=== PATIENT | male | born 1980 | race American Indian/Alaskan Native ===

== ENCOUNTER 2016-07-21 12:45 | Emergency (ER) | payer SELFPAY ==
[2016-07-21 12:52] VITALS: BP 129/86
[2016-07-21 13:24] LABS: Basophils % (Auto) 0.4 % (0.0-1.8); Hematocrit 38.6 % (35.5-45.6); Hemoglobin 12.9 gm/dl (11.8-15.2); Mean Corpuscular HGB Conc 33 % (32-34); Mean Corpuscular Hemoglobin 29 pg (28-32); Mean Corpuscular Volume 87 fl (84-94); Platelet Count 244 K/mm3 (140-440); Red Blood Count 4.42 M/mm3 (3.65-5.03); Red Cell Distribution Width 13.7 % (13.2-15.2); White Blood Count 7.2 K/mm3 (4.5-11.0)
[2016-07-21 13:29] LABS: Alanine Aminotransferase 35 units/L (7-56); Albumin 4.3 g/dL (3.9-5); Albumin/Globulin Ratio 1.7 %; Alkaline Phosphatase 50 units/L (35-129); Anion Gap 22 mmol/L; Blood Urea Nitrogen 13 mg/dL (9-20); Calcium 8.7 mg/dL (8.4-10.2); Carbon Dioxide 21 mmol/L (22-30); Glucose 145 mg/dL (75-100); Lipase 26 units/L (13-60); Potassium 3.7 mmol/L (3.6-5.0); Sodium 138 mmol/L (137-145); Total Protein 6.9 g/dL (6.3-8.2)
[2016-07-21 13:57] LABS: Bilirubin,Urine NEG (Negative); Blood,Urine NEG (Negative); Ketones,Urine 20 mg/dL (Negative); Leukocyte Esterase,Urine NEG (Negative); Mucus,Urine 1+ /HPF; Nitrite,Urine NEG (Negative); Urobilinogen,Urine < 2.0 mg/dL (<2.0)
--- NOTE | 2016-07-27 22:21 | ED Elopement Review ---
ED Pt Elopement review - Results review Lab results: Laboratory Tests 07/21/16 07/21/16 07/21/16 12:54 12:54 13:41 WBC 7.2 RBC 4.42 Hgb 12.9 Hct 38.6 MCV 87 MCH 29 MCHC 33 RDW 13.7 Plt Count 244 Lymph % (Auto) 13.1 L [place] % (Auto) 4.4 Eos % (Auto) 0.0 Baso % (Auto) 0.4 Lymph # 0.9 L [place] # 0.3 Eos # 0.0 Baso # 0.0 Seg Neutrophils % 82.1 H Seg Neutrophils # 5.9 Sodium 138 Potassium 3.7 Chloride 99.0 Carbon Dioxide 21 L Anion Gap 22 BUN 13 Creatinine 1.0 Estimated GFR > 60 BUN/Creatinine Ratio 13.00 Glucose 145 H Calcium 8.7 Total Bilirubin 2.00 H AST 36 ALT 35 Alkaline Phosphatase 50 Total Protein 6.9 Albumin 4.3 Albumin/Globulin Ratio 1.7 Lipase 26 Urine Color Yellow Urine Turbidity Clear Urine pH 5.0 Ur Specific Reading 1.026 Urine Protein 30 mg/dl Urine Glucose (UA) Neg Urine Ketones 20 Urine Blood Neg Urine Nitrite Neg Urine Bilirubin Neg Urine Urobilinogen < 2.0 Ur Leukocyte Esterase Neg Urine WBC (Auto) 2.0 Urine RBC (Auto) 1.0 U Epithel Cells (Auto) < 1.0 Urine Mucus 1+ - Call Back decision Pt Call Back Decision: No action required
== END 2016-07-21 19:20 | disposition left against medical advice (07) ==
LOC: ED 12:45
DX: R10.9 Unspecified abdominal pain (principal); M54.5 Low back pain; Z53.21 Procedure and treatment not carried out due to patient leaving prior to being seen by health care provider
CPT/HCPCS: 36415; 80053; 81001; 83690; 85025